=== PATIENT | female | born 1955 | race Caucasian/White ===

== ENCOUNTER 2020-12-15 09:10 | Observation (INO) | payer MEDICAID ==
[~2020-12-15] VITALS: Ht 165.1 cm; Wt 95.3 kg
[~2020-12-15 09:10] MED LIST: BENA20TA54 PO; BUPR300T94 PO; BUSP10TA PO; GABA400C PO; INSU100I13 SQ; MAGN27TA2 PO; METH-639 PO; OCUVITE SOFTGE1 EACH PO; PRAV40TA2 PO
[2020-12-15] MEDS ORDERED: SODIUM CHLORIDE 0.9% 1,000ML IVBOLUS ONE (09:30)
[2020-12-15] MEDS ORDERED: ONDANSETRON 2MG/ML, 2ML IVPush ONE (09:30)
--- NOTE | 2020-12-15 09:35 | NUR ---
PT SITTING UP IN BED, RESPIRATIONS EVEN AND UNLABORED ON RA. PT REPORTS N/V/D X3 WEEKS. ALSO REPORTS NO BM SINCE THURSDAY, BUT VOMIT X7 IN LAST 24 HOURS. NO VOMIT NOTED IN ED. PT AWARE OF NEED FOR STOOL AND UA SAMPLE. SIDE RAILS UP, CALL LIGHT IN REACH. DAUGHTER AT BEDSIDE.
[2020-12-15] MEDS ORDERED: ONDANSETRON 2MG/ML, 2ML ONE (09:57)
[2020-12-15 10:06] LABS: BASOPHILS % (AUTO) 1 % (0-1); EOSINOPHILS % (AUTO) 2 % (1-7); LYMPHOCYTES % (AUTO) 42 % (22-44); MEAN CORPUSCULAR HEMOGLOBIN 34.7 pg (27.0-34.8); MEAN CORPUSCULAR HGB CONC 33.6 g/dL (32.4-35.8); MEAN PLATELET VOLUME 9.5 fL (7.4-10.4); MONOCYTES % (AUTO) 7 % (2-9); NEUTROPHILS % (AUTO) 48 % (42-75); PLATELET COUNT 270 x10^3/uL (130-400); RED BLOOD COUNT 4.06 x10^6/uL (3.82-5.3); RED CELL DISTRIBUTION WIDTH 12.4 % (9.6-15.2)
--- NOTE | 2020-12-15 10:09 | NUR ---
TASK RN: PT MEDICATED PER EMAR. PT STATES SHE IS UNABLE TO PROVIDE STOOL SAMPLE AT THIS TIME. PT RESTING IN DEEPTHI PRECIADO AT THIS TIME, PER PT NO NEEDS.
[2020-12-15 10:13] LABS: MD NO
[2020-12-15 10:15] LABS: ALANINE AMINOTRANSFERASE 26 U/L (12-78); ALBUMIN 3.8 g/dL (3.4-5.0); ANION GAP 7 mmol/L (5-15); CALCIUM 8.9 mg/dL (8.5-10.1); CHLORIDE 108 mmol/L (98-107); CREATININE 1.13 mg/dL (0.55-1.02)
[2020-12-15 10:18] LABS: ALKALINE PHOSPHATASE 76 U/L (45-117); BILIRUBIN,TOTAL 0.4 mg/dL (0.2-1.0); TOTAL PROTEIN 6.8 g/dL (6.4-8.2)
--- NOTE | 2020-12-15 10:43 | NUR ---
PT REPORTS DECREASE IN NAUSEA AFTER ZOFRAN MEDICATION. ED PA AT BEDSIDE. SIDE RAILS UP, CALL LIGHT IN REACH.
--- NOTE | 2020-12-15 10:47 | NUR ---
PT AMBULATES WELL WITH RN ESCORT TO BATHROOM FOR UA SPECIMEN.
[2020-12-15 11:09] LABS: MICROSCOPIC AUTO
--- NOTE | 2020-12-15 11:45 | NUR ---
PT RESTING IN BED, RESPIRATIONS EVEN AND UNLABORED ON RA. NAD NOTED AT THIS TIME. AWAITING RECHECK.
--- NOTE | 2020-12-15 12:06 | NUR ---
ROBBIN MONCADA IN TO DISCUSS POC WITH PT. ISA NOTED AT THIS TIME.
[2020-12-15] MEDS ORDERED: LISINOPRIL PO (12:25)
[2020-12-15] MEDS ORDERED: DULA1.5P TD (12:25)
[2020-12-15] MEDS ORDERED: CEFTRIAXONE 2 GM in DEXTROSE 5% 50 ML IVPB ONE (12:30)
--- NOTE | 2020-12-15 12:35 | NUR ---
MED REQ SENT TO PHARMACY.
--- NOTE | 2020-12-15 12:48 | NUR ---
REPORT TO [facility] RN. IV ABX INFUSING AT THIS TIME.
--- NOTE | 2020-12-15 12:51 | NUR ---
FIRST ATTEMPT TO CALL REPORT.
--- NOTE | 2020-12-15 12:58 | NUR ---
REPORT TO [facility] RN. PT TO TRANSPORT WITH IVF STILL INFUSING.
[2020-12-15] MEDS ORDERED: ACETAMINOPHEN 325 MG TABLET PO PRN (13:00)
[2020-12-15] MEDS ORDERED: PROMETHAZINE 25 MG/ML, 1ML IM PRN (13:00)
[2020-12-15] MEDS ORDERED: HYDROcodone/APAP 5/325 TABLET PO PRN (13:00)
[2020-12-15] MEDS ORDERED: ONDANSETRON ODT 4 MG PO PRN (13:00)
[2020-12-15] MEDS ORDERED: ZOLPIDEM 5MG TABLET PO PRN (13:00)
[2020-12-15] MEDS ORDERED: ENALAPRILAT 1.25 MG/ML, 2ML IVPush PRN (13:00)
[2020-12-15 13:20] VITALS: BP 108/71
[2020-12-15] MEDS: SODIUM CHLORIDE 0.9% 1,000 ML IV SCH (14:48)
[2020-12-15] MEDS: GABAPENTIN 400 MG CAPSULE PO SCH ×2 (16:45→20:35)
[2020-12-15] MEDS: INSULIN LISPRO 100 UNITS/ML, PEN SQ-INSULIN SCH ×2 (18:22→21:21)
[2020-12-15] MEDS: ONDANSETRON 2MG/ML, 2ML IVPush PRN (18:22)
[2020-12-15 18:38] VITALS: BP 108/71
[2020-12-15 20:29] VITALS: BP 110/71
[2020-12-15] MEDS ORDERED: PRAVASTATIN 40 MG TABLET PO SCH (21:00)
[2020-12-16 01:02] VITALS: BP 108/72
[2020-12-16] MEDS: SODIUM CHLORIDE 0.9% 1,000 ML IV SCH ×2 (01:02→10:16)
[2020-12-16 05:33] LABS: ANION GAP 5 mmol/L (5-15); CALCIUM 8.5 mg/dL (8.5-10.1); CHLORIDE 113 mmol/L (98-107)
[2020-12-16 05:36] LABS: BASOPHILS % (AUTO) 1 % (0-1); EOSINOPHILS % (AUTO) 4 % (1-7); LYMPHOCYTES % (AUTO) 42 % (22-44); MD NO; MEAN CORPUSCULAR HEMOGLOBIN 34.6 pg (27.0-34.8); MEAN CORPUSCULAR HGB CONC 33.2 g/dL (32.4-35.8); MEAN PLATELET VOLUME 9.4 fL (7.4-10.4); MONOCYTES % (AUTO) 7 % (2-9); NEUTROPHILS % (AUTO) 47 % (42-75); PLATELET COUNT 247 x10^3/uL (130-400); RED BLOOD COUNT 3.82 x10^6/uL (3.82-5.3); RED CELL DISTRIBUTION WIDTH 12.2 % (9.6-15.2)
[2020-12-16] MEDS: GABAPENTIN 400 MG CAPSULE PO SCH (07:30)
[2020-12-16] MEDS: INSULIN LISPRO 100 UNITS/ML, PEN SQ-INSULIN SCH ×2 (07:31→10:16)
[2020-12-16 07:35] VITALS: BP 121/74
[2020-12-16] MEDS ORDERED: SUCR1TAB33 PO (08:43)
[2020-12-16] MEDS ORDERED: OMEP20TA62 PO (08:43)
[2020-12-16] MEDS ORDERED: ONDA4TAB13 PO (08:46)
[2020-12-16] MEDS ORDERED: BENAZEPRIL 20 MG TABLET PO SCH (09:00)
[2020-12-16] MEDS: ONDANSETRON 2MG/ML, 2ML IVPush PRN (09:01)
== END 2020-12-16 11:58 | disposition home or self-care (01) ==
LOC: ED 09:29 → EDIP 12:23 → INTOOBSV 12:23 → 3N 13:18 → DCLOUNGE 12-16 11:46
PROVIDERS: ADMIT Internal Medicine; ATTEND Hospitalist
DX: K29.70 Gastritis, unspecified, without bleeding (principal); E86.0 Dehydration; E10.65 Type 1 diabetes mellitus with hyperglycemia; E66.9 Obesity, unspecified; I10 Essential (primary) hypertension; F32.9 Major depressive disorder, single episode, unspecified; G62.9 Polyneuropathy, unspecified; N30.90 Cystitis, unspecified without hematuria; N17.9 Acute kidney failure, unspecified; G89.29 Other chronic pain; Z79.4 Long term (current) use of insulin; Z87.11 Personal history of peptic ulcer disease; Z79.899 Other long term (current) drug therapy; Z98.84 Bariatric surgery status; Z90.49 Acquired absence of other specified parts of digestive tract
CPT/HCPCS: 36415; 76700; 80048; 80053; 81001; 82962; 83036; 83690; 85025; 87086; 96361; 96365; 96375; 96376; 99284; G0378; J0696; J1815; J2405; J7030

== ENCOUNTER 2021-04-02 16:08 | Emergency (ER) | payer MEDICAID ==
[~2021-04-02] VITALS: Ht 152.4 cm; Wt 98.3 kg
[~2021-04-02 16:08] MED LIST changes: +DULA1.5P TD; +LISINOPRIL PO; +OMEP20TA62 PO; +ONDA4TAB13 PO; +SUCR1TAB33 PO
[2021-04-02 17:01] VITALS: BP 117/77
--- NOTE | 2021-04-02 17:10 | NUR ---
supervisor malted milk: EKG done in triage
[2021-04-02 18:03] LABS: BASOPHILS % (AUTO) 0 % (0-1); EOSINOPHILS % (AUTO) 2 % (1-7); LYMPHOCYTES % (AUTO) 30 % (22-44); MEAN CORPUSCULAR HEMOGLOBIN 34.6 pg (27.0-34.8); MEAN PLATELET VOLUME 8.8 fL (7.4-10.4); MONOCYTES % (AUTO) 8 % (2-9); NEUTROPHILS % (AUTO) 60 % (42-75); PLATELET COUNT 333 x10^3/uL (130-400); RED BLOOD COUNT 4.43 x10^6/uL (3.82-5.3); RED CELL DISTRIBUTION WIDTH 14.5 % (9.6-15.2)
[2021-04-02 18:20] LABS: ALBUMIN 3.8 g/dL (3.4-5.0); ANION GAP 8 mmol/L (5-15); CALCIUM 9.7 mg/dL (8.5-10.1); CHLORIDE 116 mmol/L (98-107)
[2021-04-02 18:24] LABS: ALANINE AMINOTRANSFERASE 23 U/L (12-78); ALKALINE PHOSPHATASE 154 U/L (45-117); BILIRUBIN,TOTAL 0.4 mg/dL (0.2-1.0); CREATININE 1.48 mg/dL (0.55-1.02); TOTAL PROTEIN 7.6 g/dL (6.4-8.2)
[2021-04-02] MEDS ORDERED: LIDOCAINE 1%, 10ML INFIL ONE (18:30)
[2021-04-02] MEDS ORDERED: L.E.T SOLUTION TP ONE ×2 (18:30→18:32)
[2021-04-02] MEDS ORDERED: LACTATED RINGERS 1,000 ML IVBOLUS ONE (18:30)
[2021-04-02] MEDS ORDERED: LIDOCAINE-MPF 1%, 5ML ONE (18:32)
--- NOTE | 2021-04-02 18:40 | NUR ---
TASK RN NOTE: L.E.T. APPLIED TO PT'S FOOT. LIDO AND SYRINGE AT BEDSIDE FOR PROVIDER. PT RECLINED IN BED, NAD NOTED AT THIS TIME. RESPIRATIONS EVEN AND UNLABORED.
--- NOTE | 2021-04-02 19:38 | NUR ---
PTS TOE LACERATION IRRIGATED WITH STERILE SALINE SOLUTION. LACERATION SET UP AT BEDSIDE.
[2021-04-02] MEDS ORDERED: CEPHALEXIN 500 MG CAPSULE PO ONE (20:00)
[2021-04-02] MEDS ORDERED: CEPHALEXIN 500 MG CAPSULE ONE (20:10)
--- NOTE | 2021-04-02 20:24 | NUR ---
Patient/Caregiver given discharge instructions and they have confirmed that they understand the instructions. Patient ambulatory with steady gait. NAD, all questions answered appropriately, denies additional needs at this time. No personal belongings left in room after discharge.
== END 2021-04-02 20:30 | disposition home or self-care (01) ==
LOC: ED 16:38
DX: S92.514B Nondisplaced fracture of proximal phalanx of right lesser toe(s), initial encounter for open fracture (principal); R53.1 Weakness; R29.6 Repeated falls; R00.0 Tachycardia, unspecified; I10 Essential (primary) hypertension; E11.9 Type 2 diabetes mellitus without complications; E78.5 Hyperlipidemia, unspecified; Z90.49 Acquired absence of other specified parts of digestive tract; Z87.891 Personal history of nicotine dependence; W18.30XA Fall on same level, unspecified, initial encounter; Y93.89 Activity, other specified; Y92.89 Other specified places as the place of occurrence of the external cause; Y99.8 Other external cause status
CPT/HCPCS: 12001; 36415; 73630; 80053; 85025; 93005; 96360; 99285; J3490; J7120

== ENCOUNTER 2021-04-29 09:16 | Outpatient (CLI) | payer MEDICAID | END 2021-04-29 23:59 | disposition home or self-care (01) | LOC: RAD 09:16 | PROVIDERS: ATTEND Physician Assistant | DX: R13.10 Dysphagia, unspecified (principal) | CPT/HCPCS: 74230 ==